=== PATIENT | male | born 1955 | race African-American/Black ===

== ENCOUNTER 2016-07-15 05:55 | Emergency (ER) | payer OTHER ==
[~2016-07-15] VITALS: Ht 170.2 cm; Wt 68.2 kg
[~2016-07-15 05:55] MED LIST: ADVAIR 250/501 DISK IH; ALBUTEROL SULF8.5 GM IH; AQUAPHOR W-NAT50 GM TP; ASPIR-LOW81 MG PO; ASPIR-TRIN325 M1 PO; ATARAX,VISTARIL25 MG PO; AZITHROMYCIN500 M1 PO; LORTAB 5-325 M1 EACH PO; MEDROL DOSEPAK4 MG PO; MOBIC7.5 MG PO; Medrol Dosepak PO; OMEGA 3 1,0001 EAC1 PO; OMEGA-31000 M1 PO; PRAMOSONE 2.528.4 G1 PR; PREDNISONE10 M1 PO; PREDNISONE20 MG PO; PRILOSEC20 MG PO; PROVENTIL HFA6.7 GM IH; Proventil,Ventolin H IH; RISPERDAL1 MG PO; SYMBICORT60 INHALAT IH; ULTRAM50 MG PO; VENTOLIN HFA18 GM IH; ZITHROMAX Z-PA250 MG PO; ZITHROMAX250 MG PO; [UNRECOGNIZED DRUG - OTHER]
[2016-07-15 06:46] LABS: HEMATOCRIT 39.7 % (38.0-50.0); MCH 26.3 PG (29.0-34.0); MCV 79.6 FL (86-99); MEAN PLAT.VOLUME 9.6 uM^3 (9.0-12.4); PLATELET COUNT 207 K/uL (156-360); RBC DIS.WIDTH-CV 15.3 % (11.8-14.6); RED BLOOD COUNT 4.99 M/uL (4.00-5.50); WHITE BLOOD COUNT 4.4 K/uL (4.1-10.2)
[2016-07-15 06:55] LABS: CHLORIDE 110 mEq/L (99-109); POTASSIUM 3.9 mEq/L (3.7-5.4); SODIUM 143 mEq/L (136-147)
[2016-07-15 06:57] LABS: GLUCOSE 95 mg/dL (70-99)
[2016-07-15 06:58] LABS: ANION GAP 10 MEQ/L (2-14)
[2016-07-15 07:00] LABS: GFR ESTIMATE (CALCULATED) > 59 mL/min/
[2016-07-15 07:01] LABS: UREA NITROGEN (BUN) 21 mg/dL (9-23)
[2016-07-15] MEDS ORDERED: ZITHROMAX Z-PA250 MG PO (08:05)
[2016-07-15] MEDS ORDERED: PREDNISONE50 MG PO (08:05)
[2016-07-15 08:31] VITALS: BP 102/69
== END 2016-07-15 08:32 | disposition home or self-care (01) ==
LOC: EME 05:55
DX: J45.901 Unspecified asthma with (acute) exacerbation (principal); Z91.040 Latex allergy status; Z88.0 Allergy status to penicillin; Z87.891 Personal history of nicotine dependence
CPT/HCPCS: 71020; 80048; 85027; 94640; 99281; 99284; J1100; J7644

== ENCOUNTER 2016-08-03 03:26 | Emergency (ER) | payer OTHER ==
[~2016-08-03] VITALS: Ht 170.2 cm; Wt 61.7 kg
[~2016-08-03 03:26] MED LIST changes: +ADVAIR 250/501 DISK AEROSOL; +DOXYCYCLINE HY100 M3 PO; +HYDROXYZINE HCL25 MG PO; +PREDNISONE10 MG PO; +PREDNISONE50 MG PO
[2016-08-03 03:33] VITALS: BP 118/72
[2016-08-03 03:59] LABS: MCH 26.2 PG (29.0-34.0); MCHC 33.3 G/DL (30.0-36.0); MCV 78.6 FL (86-99); MEAN PLAT.VOLUME 9.2 uM^3 (9.0-12.4); PLATELET COUNT 185 K/uL (156-360); RBC DIS.WIDTH-CV 15.6 % (11.8-14.6); RBC DIS.WIDTH-SD 43.6 % (39-53); RED BLOOD COUNT 4.96 M/uL (4.00-5.50); WHITE BLOOD COUNT 4.4 K/uL (4.1-10.2)
[2016-08-03 04:11] LABS: CHLORIDE 109 mEq/L (99-109); POTASSIUM 4.1 mEq/L (3.7-5.4); SODIUM 140 mEq/L (136-147)
[2016-08-03 04:13] LABS: GLUCOSE 94 mg/dL (70-99)
[2016-08-03 04:14] LABS: ANION GAP 7 MEQ/L (2-14)
[2016-08-03 04:17] LABS: GFR ESTIMATE (CALCULATED) > 59 mL/min/
[2016-08-03 04:18] LABS: UREA NITROGEN (BUN) 29 mg/dL (9-23)
[2016-08-03 04:20] LABS: TROP-I INTERPRETATION NEGATIVE; TROPONIN-I < 0.01 ng/mL (0.0-0.30)
[2016-08-03] MEDS ORDERED: ZITHROMAX Z-PA250 MG PO (04:45)
[2016-08-03] MEDS ORDERED: PREDNISONE20 MG PO (04:45)
[2016-08-03] MEDS ORDERED: PROAIR HFA8.5 GM IH (04:45)
== END 2016-08-03 05:19 | disposition home or self-care (01) ==
LOC: EME 03:26
PROVIDERS: Emergency Medicine
DX: J44.1 Chronic obstructive pulmonary disease with (acute) exacerbation (principal); F32.9 Major depressive disorder, single episode, unspecified; I10 Essential (primary) hypertension; E78.5 Hyperlipidemia, unspecified; I25.10 Atherosclerotic heart disease of native coronary artery without angina pectoris; Z98.61 Coronary angioplasty status; Z87.891 Personal history of nicotine dependence
CPT/HCPCS: 71010; 80048; 84484; 85027; 93005; 94640; J7512

== ENCOUNTER 2016-08-22 23:18 | Emergency (ER) | payer OTHER ==
[~2016-08-22] VITALS: Ht 170.2 cm; Wt 64.3 kg
[~2016-08-22 23:18] MED LIST changes: +PROAIR HFA8.5 GM IH
[2016-08-23 00:20] LABS: EOSINOPHIL (%) 5.1 % (0-5); EOSINOPHIL COUNT 0.2 K/uL (0-0.3); HEMATOCRIT 37.5 % (38.0-50.0); IMMATURE GRANULOCYTE (%) 0.2 % (0.0-0.7); IMMATURE GRANULOCYTE COUNT 0.1 K/uL; LYMPHOCYTE COUNT 1.7 K/uL (1.0-2.8); MCH 26.2 PG (29.0-34.0); MCHC 33.3 G/DL (30.0-36.0); MCV 78.6 FL (86-99); MEAN PLAT.VOLUME 9.4 uM^3 (9.0-12.4); MONOCYTE (%) 10.7 % (3-12); MONOCYTE COUNT 0.5 K/uL (0-0.8); NEUTROPHIL (%) 45.4 % (45-76); PLATELET COUNT 201 K/uL (156-360); RBC DIS.WIDTH-CV 15.9 % (11.8-14.6); RBC DIS.WIDTH-SD 44.7 % (39-53); RED BLOOD COUNT 4.77 M/uL (4.00-5.50); WHITE BLOOD COUNT 4.3 K/uL (4.1-10.2)
[2016-08-23 00:35] LABS: CHLORIDE 110 mEq/L (99-109); POTASSIUM 3.7 mEq/L (3.7-5.4); SODIUM 144 mEq/L (136-147)
[2016-08-23 00:38] LABS: GLUCOSE 89 mg/dL (70-99)
[2016-08-23 00:39] LABS: ANION GAP 9 MEQ/L (2-14)
[2016-08-23 00:40] LABS: TOTAL BILIRUBIN 1.1 mg/dL (0.0-1.0)
[2016-08-23 00:41] LABS: ALKALINE PHOSPHATASE 44 IU/L (3-129); GFR ESTIMATE (CALCULATED) > 59 mL/min/; TROP-I INTERPRETATION NEGATIVE; TROPONIN-I < 0.01 ng/mL (0.0-0.30)
[2016-08-23 00:42] LABS: UREA NITROGEN (BUN) 21 mg/dL (9-23)
[2016-08-23] MEDS ORDERED: ZITHROMAX Z-PA250 MG PO (01:37)
[2016-08-23] MEDS ORDERED: PROAIR HFA8.5 GM IH (01:37)
[2016-08-23] MEDS ORDERED: PREDNISONE20 MG PO (01:37)
[2016-08-23 02:03] VITALS: BP 107/68
== END 2016-08-23 02:37 | disposition home or self-care (01) ==
LOC: EME 23:18
PROVIDERS: Emergency Medicine
DX: J44.1 Chronic obstructive pulmonary disease with (acute) exacerbation (principal); Z87.891 Personal history of nicotine dependence
CPT/HCPCS: 71020; 80053; 83880; 84484; 85025; 93005; 94640; 94640 76; 99281; 99284; J7512

== ENCOUNTER 2016-10-23 18:06 | Emergency (ER) | payer OTHER ==
[~2016-10-23] VITALS: Ht 170.2 cm; Wt 63.0 kg
[2016-10-23 20:51] VITALS: BP 126/85
== END 2016-10-23 20:51 | disposition home or self-care (01) ==
LOC: EME → EDBD 18:06 → EME 18:06
DX: S09.90XA Unspecified injury of head, initial encounter (principal); M25.551 Pain in right hip; W19.XXXA Unspecified fall, initial encounter; F17.200 Nicotine dependence, unspecified, uncomplicated; Z91.040 Latex allergy status; Z88.0 Allergy status to penicillin; Z91.048 Other nonmedicinal substance allergy status
CPT/HCPCS: 70450; 72125; 73502; 99281; 99284

== ENCOUNTER 2016-11-10 09:41 | Observation (INO) | payer OTHER ==
[~2016-11-10] VITALS: Ht 170.2 cm; Wt 65.8 kg
[2016-11-10 11:46] LABS: HEMATOCRIT 40.8 % (38.0-50.0); MCHC 31.6 G/DL (30.0-36.0); MCV 82.3 FL (86-99); MEAN PLAT.VOLUME 9.1 uM^3 (9.0-12.4); PLATELET COUNT 192 K/uL (156-360); RBC DIS.WIDTH-CV 15.8 % (11.8-14.6); RBC DIS.WIDTH-SD 47.6 % (39-53); RED BLOOD COUNT 4.96 M/uL (4.00-5.50); WHITE BLOOD COUNT 3.4 K/uL (4.1-10.2)
[2016-11-10 11:57] LABS: CHLORIDE 108 mEq/L (99-109); POTASSIUM 3.9 mEq/L (3.7-5.4); SODIUM 142 mEq/L (136-147)
[2016-11-10 11:59] LABS: GLUCOSE 68 mg/dL (70-99)
[2016-11-10 12:00] LABS: ANION GAP 10 MEQ/L (2-14)
[2016-11-10 12:02] LABS: SERUM ETHYL ALCOHOL < 10 mg/dL
[2016-11-10 12:03] LABS: GFR ESTIMATE (CALCULATED) > 59 mL/min/
[2016-11-10 12:04] LABS: UREA NITROGEN (BUN) 14 mg/dL (9-23)
[2016-11-10 12:30] LABS: HIV INDEX 0.15; HIV-1/2 AB/AG COMBO Nonreactive
[2016-11-10 14:39] LABS: ADD MIUA? NO; BILIRUBIN NEGATIVE; BLOOD NEGATIVE; COLOR YELLOW ((YELLOW)); GLUCOSE (STRIP) NEGATIVE; KETONES NEGATIVE; LEUKOCYTES NEGATIVE; NITRITE NEGATIVE; PROTEIN (STRIP) NEGATIVE; SPECIFIC GRAVITY 1.015 (1.000-1.030); UCUL ADDED? NO; UROBILINOGEN 0.2 MG/DL (0.2-1.0)
[2016-11-10 14:49] LABS: AMPHETAMINE NEGATIVE (500 ng/mL); BARBITURATES NEGATIVE (200 ng/mL); BENZODIAZEPINES NEGATIVE (150 ng/mL); COCAINE NEGATIVE (150 ng/mL); INTERNAL CONTROLS VALID? YES; METHADONE NEGATIVE (200 ng/mL); METHAMPHETAMINE NEGATIVE (500 ng/mL); OPIATES (MORPHINE) NEGATIVE (100 ng/mL); OXYCODONE NEGATIVE (100 ng/mL); PHENCYCLIDINE NEGATIVE (25 ng/mL); PROPOXYPHENE NEGATIVE (300 ng/mL); THC CANNABINOIDS NEGATIVE (50 ng/mL); TRICYCLIC ANTIDEPRESSANTS NEGATIVE (300 ng/mL)
[2016-11-10] MEDS ORDERED: ZANTAC150 MG PO (15:21)
[2016-11-10] MEDS ORDERED: VENTOLIN HFA18 GM IH (15:21)
[2016-11-10] MEDS ORDERED: RISPERIDONE3 MG PO (15:21)
[2016-11-10] MEDS ORDERED: SERTRALINE HCL100 MG PO (15:21)
[2016-11-10 16:06] LABS: INFLUENZA A VIRAL ANTIGEN NEGATIVE; INFLUENZA B VIRAL ANTIGEN NEGATIVE
[2016-11-10 18:11] VITALS: BP 128/81
[2016-11-10 20:35] VITALS: BP 129/80
[2016-11-10 23:37] VITALS: BP 110/78
[2016-11-11 04:51] VITALS: BP 124/73
[2016-11-11 07:47] VITALS: BP 121/71
[2016-11-11 10:22] LABS: HEMATOCRIT 35.1 % (38.0-50.0); MCH 26.3 PG (29.0-34.0); MCHC 32.5 G/DL (30.0-36.0); MCV 81.1 FL (86-99); MEAN PLAT.VOLUME 8.9 uM^3 (9.0-12.4); PLATELET COUNT 160 K/uL (156-360); RBC DIS.WIDTH-CV 15.5 % (11.8-14.6); RBC DIS.WIDTH-SD 46.3 % (39-53); RED BLOOD COUNT 4.33 M/uL (4.00-5.50); WHITE BLOOD COUNT 3.7 K/uL (4.1-10.2)
[2016-11-11 10:31] LABS: CHLORIDE 114 mEq/L (99-109); POTASSIUM 4.2 mEq/L (3.7-5.4); SODIUM 141 mEq/L (136-147)
[2016-11-11 10:34] LABS: ANION GAP 7 MEQ/L (2-14)
[2016-11-11 10:36] LABS: GFR ESTIMATE (CALCULATED) > 59 mL/min/
[2016-11-11 10:37] LABS: UREA NITROGEN (BUN) 10 mg/dL (9-23)
[2016-11-11 10:42] LABS: GLUCOSE 88 mg/dL (70-99)
[2016-11-11 12:17] VITALS: BP 129/79
== END 2016-11-11 12:33 | disposition home or self-care (01) ==
LOC: EME → EDBD 09:41 → EME 09:41 → EDOF 14:22 → 3EAST 14:22 → EDOF 14:22 → 3EAST 17:39
PROVIDERS: Emergency Medicine; Physician Assistant
DX: E87.2 Acidosis (principal); E86.0 Dehydration; R53.1 Weakness; G89.21 Chronic pain due to trauma; M25.551 Pain in right hip; M25.511 Pain in right shoulder; M25.512 Pain in left shoulder; R05 Cough; J45.909 Unspecified asthma, uncomplicated; E11.9 Type 2 diabetes mellitus without complications; I10 Essential (primary) hypertension; E78.5 Hyperlipidemia, unspecified; F41.9 Anxiety disorder, unspecified; G62.9 Polyneuropathy, unspecified
CPT/HCPCS: 71020; 80048; 81003; 83605; 85027; 86703; 87040; 87502; 99281; 99285; G0378; G0480; J0692; J1650; J3370; J7030; J7050

== ENCOUNTER 2016-12-23 21:43 | Emergency (ER) | payer OTHER ==
[~2016-12-23] VITALS: Ht 170.2 cm; Wt 67.3 kg
[~2016-12-23 21:43] MED LIST changes: +RISPERIDONE3 MG PO; +SERTRALINE HCL100 MG PO; +ZANTAC150 MG PO
[2016-12-24] MEDS ORDERED: MOTRIN800 MG PO (02:19)
[2016-12-24 02:46] VITALS: BP 118/72
== END 2016-12-24 02:47 | disposition home or self-care (01) ==
LOC: EME 21:43
DX: R51 Headache (principal); G89.29 Other chronic pain; M25.511 Pain in right shoulder; M25.551 Pain in right hip; M79.604 Pain in right leg; F17.200 Nicotine dependence, unspecified, uncomplicated
CPT/HCPCS: 99281; 99284; J1885

== ENCOUNTER 2017-01-17 09:40 | Emergency (ER) | payer OTHER ==
[~2017-01-17] VITALS: Ht 170.2 cm; Wt 62.2 kg
[~2017-01-17 09:40] MED LIST changes: +MOTRIN800 MG PO
[2017-01-17 11:23] LABS: HEMATOCRIT 37.8 % (38.0-50.0); MCH 26.7 PG (29.0-34.0); MCHC 32.8 G/DL (30.0-36.0); MCV 81.3 FL (86-99); MEAN PLAT.VOLUME 9.6 uM^3 (9.0-12.4); PLATELET COUNT 200 K/uL (156-360); RBC DIS.WIDTH-SD 47.8 % (39-53); RED BLOOD COUNT 4.65 M/uL (4.00-5.50)
[2017-01-17 11:35] LABS: CHLORIDE 111 mEq/L (99-109); POTASSIUM 4.2 mEq/L (3.7-5.4); SODIUM 144 mEq/L (136-147)
[2017-01-17 11:37] LABS: GLUCOSE 82 mg/dL (70-99)
[2017-01-17 11:38] LABS: ANION GAP 7 MEQ/L (2-14)
[2017-01-17 11:39] LABS: TOTAL BILIRUBIN 0.9 mg/dL (0.0-1.0)
[2017-01-17 11:41] LABS: ALKALINE PHOSPHATASE 65 IU/L (3-129); GFR ESTIMATE (CALCULATED) > 59 mL/min/
[2017-01-17 11:42] LABS: UREA NITROGEN (BUN) 13 mg/dL (9-23)
[2017-01-17 11:56] LABS: ADD MIUA? NO; BILIRUBIN NEGATIVE; BLOOD NEGATIVE; COLOR YELLOW ((YELLOW)); GLUCOSE (STRIP) NEGATIVE; KETONES NEGATIVE; LEUKOCYTES NEGATIVE; NITRITE NEGATIVE; PROTEIN (STRIP) NEGATIVE; SPECIFIC GRAVITY 1.015 (1.000-1.030); UCUL ADDED? NO
[2017-01-17 13:07] LABS: AMPHETAMINE NEGATIVE (500 ng/mL); BARBITURATES NEGATIVE (200 ng/mL); BENZODIAZEPINES NEGATIVE (150 ng/mL); COCAINE NEGATIVE (150 ng/mL); INTERNAL CONTROLS VALID? YES; METHADONE NEGATIVE (200 ng/mL); METHAMPHETAMINE NEGATIVE (500 ng/mL); OPIATES (MORPHINE) NEGATIVE (100 ng/mL); OXYCODONE NEGATIVE (100 ng/mL); PHENCYCLIDINE NEGATIVE (25 ng/mL); PROPOXYPHENE NEGATIVE (300 ng/mL); THC CANNABINOIDS PRESUMPTIVE POSITIVE (50 ng/mL); TRICYCLIC ANTIDEPRESSANTS NEGATIVE (300 ng/mL)
[2017-01-17 13:08] LABS: ADD MEDTOX COMMENT Y
[2017-01-17] MEDS ORDERED: MOTRIN800 MG PO (13:16)
[2017-01-17 13:44] VITALS: BP 102/68
== END 2017-01-17 13:45 | disposition home or self-care (01) ==
LOC: EME 09:40
DX: R42 Dizziness and giddiness (principal); G89.29 Other chronic pain; M25.511 Pain in right shoulder; F12.10 Cannabis abuse, uncomplicated; F32.9 Major depressive disorder, single episode, unspecified; F17.200 Nicotine dependence, unspecified, uncomplicated; Z87.19 Personal history of other diseases of the digestive system; Z88.0 Allergy status to penicillin; Z91.040 Latex allergy status
CPT/HCPCS: 71020; 80053; 81003; 84999; 85027; 99281; 99283

== ENCOUNTER 2017-02-09 06:51 | Emergency (ER) | payer OTHER ==
[~2017-02-09] VITALS: Ht 170.2 cm; Wt 63.6 kg
[2017-02-09] MEDS ORDERED: KENALOG,ARISTOC60 ML TP (07:29)
[2017-02-09] MEDS ORDERED: ATARAX,VISTARIL50 MG PO (07:29)
[2017-02-09] MEDS ORDERED: MEDROL DOSEPAK4 MG PO (07:30)
[2017-02-09 08:12] VITALS: BP 140/80
== END 2017-02-09 08:12 | disposition home or self-care (01) ==
LOC: EME 06:51
DX: L25.9 Unspecified contact dermatitis, unspecified cause (principal); Z20.7 Contact with and (suspected) exposure to pediculosis, acariasis and other infestations
CPT/HCPCS: 99281; 99283; Q0177

== ENCOUNTER 2017-03-09 23:40 | Emergency (ER) | payer OTHER ==
[~2017-03-09] VITALS: Ht 170.2 cm; Wt 60.2 kg
[~2017-03-09 23:40] MED LIST changes: +ATARAX,VISTARIL50 MG PO; +KENALOG,ARISTOC60 ML TP
[2017-03-10 05:27] LABS: CHLORIDE 105 mEq/L (99-109); POTASSIUM 3.6 mEq/L (3.7-5.4); SODIUM 139 mEq/L (136-147)
[2017-03-10 05:29] LABS: GLUCOSE 86 mg/dL (70-99)
[2017-03-10 05:30] LABS: ANION GAP 11 MEQ/L (2-14)
[2017-03-10 05:33] LABS: GFR ESTIMATE (CALCULATED) > 59 mL/min/; UREA NITROGEN (BUN) 9 mg/dL (9-23)
[2017-03-10 05:38] LABS: HEMATOCRIT 38.9 % (38.0-50.0); MCH 26.6 PG (29.0-34.0); MCHC 32.6 G/DL (30.0-36.0); MCV 81.4 FL (86-99); MEAN PLAT.VOLUME 9.5 uM^3 (9.0-12.4); PLATELET COUNT 219 K/uL (156-360); RBC DIS.WIDTH-CV 16.8 % (11.8-14.6); RBC DIS.WIDTH-SD 49.5 % (39-53); RED BLOOD COUNT 4.78 M/uL (4.00-5.50)
[2017-03-10] MEDS ORDERED: ATARAX,VISTARIL25 MG PO (05:46)
[2017-03-10] MEDS ORDERED: [UNRECOGNIZED DRUG - OTHER] TP (05:46)
[2017-03-10 06:25] VITALS: BP 128/77
== END 2017-03-10 06:29 | disposition home or self-care (01) ==
LOC: EME 23:40
PROVIDERS: Emergency Medicine
DX: S80.861A Insect bite (nonvenomous), right lower leg, initial encounter (principal); S80.862A Insect bite (nonvenomous), left lower leg, initial encounter; W57.XXXA Bitten or stung by nonvenomous insect and other nonvenomous arthropods, initial encounter; G47.00 Insomnia, unspecified; R05 Cough; F17.200 Nicotine dependence, unspecified, uncomplicated
CPT/HCPCS: 71020; 80048; 85027; 99281; 99283; Q0177

== ENCOUNTER 2017-04-19 00:02 | Emergency (ER) | payer OTHER ==
[~2017-04-19] VITALS: Ht 170.2 cm; Wt 56.0 kg
[~2017-04-19 00:02] MED LIST changes: +[UNRECOGNIZED DRUG - OTHER] TP
[2017-04-19 00:56] LABS: HEMATOCRIT 39.3 % (38.0-50.0); MCH 26.9 PG (29.0-34.0); MCHC 33.1 G/DL (30.0-36.0); MCV 81.4 FL (86-99); PLATELET COUNT 237 K/uL (156-360); RBC DIS.WIDTH-SD 47.8 % (39-53); RED BLOOD COUNT 4.83 M/uL (4.00-5.50); WHITE BLOOD COUNT 12.7 K/uL (4.1-10.2)
[2017-04-19 01:05] LABS: CHLORIDE 101 mEq/L (99-109); POTASSIUM 3.3 mEq/L (3.7-5.4); SODIUM 139 mEq/L (136-147)
[2017-04-19 01:06] LABS: GLUCOSE 83 mg/dL (70-99)
[2017-04-19 01:08] LABS: ANION GAP 13 MEQ/L (2-14)
[2017-04-19 01:10] LABS: GFR ESTIMATE (CALCULATED) > 59 mL/min/
[2017-04-19 01:11] LABS: UREA NITROGEN (BUN) 16 mg/dL (9-23)
[2017-04-19] MEDS ORDERED: VENTOLIN HFA18 GM IH (02:22)
[2017-04-19] MEDS ORDERED: ZITHROMAX Z-PA250 MG PO (02:22)
[2017-04-19] MEDS ORDERED: PREDNISONE20 MG PO (02:22)
[2017-04-19 03:40] VITALS: BP 108/68
== END 2017-04-19 03:48 | disposition home or self-care (01) ==
LOC: EME 00:02
DX: J44.1 Chronic obstructive pulmonary disease with (acute) exacerbation (principal); R11.0 Nausea; R09.3 Abnormal sputum; F17.200 Nicotine dependence, unspecified, uncomplicated
CPT/HCPCS: 71020; 80048; 85027; 94640; 99281; 99283; J7512

== ENCOUNTER 2017-05-02 11:49 | Emergency (ER) | payer OTHER ==
[~2017-05-02] VITALS: Ht 170.2 cm; Wt 56.2 kg
[2017-05-02 13:29] LABS: EOSINOPHIL (%) 1.8 % (0-5); EOSINOPHIL COUNT 0.1 K/uL (0-0.3); HEMATOCRIT 44.9 % (38.0-50.0); IMMATURE GRANULOCYTE (%) 1.5 % (0.0-0.7); IMMATURE GRANULOCYTE COUNT 0.1 K/uL; INSTRUMENT ABS NEUTROPHIL CT 3.9 K/uL; LYMPHOCYTE COUNT 2.1 K/uL (1.0-2.8); MCH 29.7 PG (29.0-34.0); MCHC 33.9 G/DL (30.0-36.0); MEAN PLAT.VOLUME 9.3 uM^3 (9.0-12.4); MONOCYTE (%) 6.7 % (3-12); MONOCYTE COUNT 0.5 K/uL (0-0.8); NEUTROPHIL (%) 58.2 % (45-76); NEUTROPHIL COUNT 3.9 K/uL (1.8-6.4); PLATELET COUNT 286 K/uL (156-360); RBC DIS.WIDTH-CV 13.3 % (11.8-14.6); RBC DIS.WIDTH-SD 42.6 % (39-53); RED BLOOD COUNT 5.11 M/uL (4.00-5.50); WHITE BLOOD COUNT 6.7 K/uL (4.1-10.2)
[2017-05-02 13:30] LABS: MCV 87.9 FL (86-99)
[2017-05-02 13:35] LABS: CHLORIDE 106 mEq/L (99-109); SODIUM 141 mEq/L (136-147)
[2017-05-02 13:37] LABS: GLUCOSE 94 mg/dL (70-99)
[2017-05-02 13:38] LABS: ANION GAP 9 MEQ/L (2-14)
[2017-05-02 13:40] LABS: SERUM ETHYL ALCOHOL < 10 mg/dL
[2017-05-02 13:41] LABS: GFR ESTIMATE (CALCULATED) > 59 mL/min/
[2017-05-02 13:42] LABS: UREA NITROGEN (BUN) 14 mg/dL (9-23)
[2017-05-02 13:53] LABS: ADD MEDTOX COMMENT Y; AMPHETAMINE NEGATIVE (500 ng/mL); BARBITURATES NEGATIVE (200 ng/mL); BENZODIAZEPINES NEGATIVE (150 ng/mL); COCAINE PRESUMPTIVE POSITIVE (150 ng/mL); INTERNAL CONTROLS VALID? YES; METHADONE NEGATIVE (200 ng/mL); METHAMPHETAMINE NEGATIVE (500 ng/mL); OPIATES (MORPHINE) NEGATIVE (100 ng/mL); OXYCODONE NEGATIVE (100 ng/mL); PHENCYCLIDINE NEGATIVE (25 ng/mL); PROPOXYPHENE NEGATIVE (300 ng/mL); THC CANNABINOIDS PRESUMPTIVE POSITIVE (50 ng/mL); TRICYCLIC ANTIDEPRESSANTS NEGATIVE (300 ng/mL)
[2017-05-02 15:32] VITALS: BP 93/60
== END 2017-05-02 16:11 | disposition home or self-care (01) ==
LOC: EME 11:49
PROVIDERS: Emergency Medicine
DX: F32.9 Major depressive disorder, single episode, unspecified (principal); R45.851 Suicidal ideations; R44.0 Auditory hallucinations; F41.9 Anxiety disorder, unspecified; R05 Cough; R06.2 Wheezing; F14.90 Cocaine use, unspecified, uncomplicated; F10.99 Alcohol use, unspecified with unspecified alcohol-induced disorder; F12.90 Cannabis use, unspecified, uncomplicated; F17.200 Nicotine dependence, unspecified, uncomplicated
CPT/HCPCS: 71010; 80048; 84999; 85025; 90839; 94640; 99281; 99285; G0480

== ENCOUNTER 2017-05-04 04:25 | Emergency (ER) | payer OTHER ==
[~2017-05-04] VITALS: Ht 170.2 cm; Wt 56.6 kg
[2017-05-04 05:53] VITALS: BP 120/68
== END 2017-05-04 05:54 | disposition home or self-care (01) ==
LOC: EME 04:25
DX: S20.212A Contusion of left front wall of thorax, initial encounter (principal); Y04.8XXA Assault by other bodily force, initial encounter; Y93.01 Activity, walking, marching and hiking; Y07.9 Unspecified perpetrator of maltreatment and neglect; F32.9 Major depressive disorder, single episode, unspecified; F31.9 Bipolar disorder, unspecified; F41.9 Anxiety disorder, unspecified; F17.200 Nicotine dependence, unspecified, uncomplicated; Z87.19 Personal history of other diseases of the digestive system; Z88.0 Allergy status to penicillin; Z91.040 Latex allergy status
CPT/HCPCS: 71100; 99281; 99283

== ENCOUNTER 2017-05-12 05:18 | Emergency (ER) | payer OTHER ==
[~2017-05-12] VITALS: Ht 170.2 cm; Wt 54.7 kg
[2017-05-12 06:05] LABS: CHLORIDE 108 mEq/L (99-109); POTASSIUM 3.8 mEq/L (3.7-5.4); SODIUM 140 mEq/L (136-147)
[2017-05-12 06:07] LABS: GLUCOSE 113 mg/dL (70-99)
[2017-05-12 06:08] LABS: ANION GAP 10 MEQ/L (2-14)
[2017-05-12 06:09] LABS: EOSINOPHIL (%) 21.2 % (0-5); HEMATOCRIT 37.9 % (38.0-50.0); IMMATURE GRANULOCYTE (%) 0.2 % (0.0-0.7); INSTRUMENT ABS NEUTROPHIL CT 1.2 K/uL; MCH 26.9 PG (29.0-34.0); MCHC 33.2 G/DL (30.0-36.0); MEAN PLAT.VOLUME 9.5 uM^3 (9.0-12.4); MONOCYTE (%) 8.6 % (3-12); MONOCYTE COUNT 0.4 K/uL (0-0.8); NEUTROPHIL (%) 26.6 % (45-76); NEUTROPHIL COUNT 1.2 K/uL (1.8-6.4); PLATELET COUNT 201 K/uL (156-360); RBC DIS.WIDTH-CV 16.2 % (11.8-14.6); RBC DIS.WIDTH-SD 47.6 % (39-53); RED BLOOD COUNT 4.68 M/uL (4.00-5.50); WHITE BLOOD COUNT 4.7 K/uL (4.1-10.2)
[2017-05-12 06:11] LABS: GFR ESTIMATE (CALCULATED) > 59 mL/min/; UREA NITROGEN (BUN) 15 mg/dL (9-23)
[2017-05-12 06:25] LABS: ADD MIUA? YES; BILIRUBIN NEGATIVE; BLOOD NEGATIVE; COLOR YELLOW ((YELLOW)); GLUCOSE (STRIP) NEGATIVE; KETONES NEGATIVE; LEUKOCYTES NEGATIVE; NITRITE NEGATIVE; PROTEIN (STRIP) NEGATIVE
[2017-05-12 06:30] VITALS: BP 103/66
[2017-05-12 06:30] LABS: BACTERIA NONE SEEN /HPF; EPITHELIAL CELLS RARE /HPF; MUCUS TRACE /LPF; UCUL ADDED? NO; WHITE BLOOD CELLS 0-5 /HPF (0-5)
[2017-05-12] MEDS ORDERED: LIDOCAINE700 MG TP (06:33)
[2017-05-12] MEDS ORDERED: ULTRAM50 MG PO (06:33)
== END 2017-05-12 06:32 | disposition home or self-care (01) ==
LOC: EME → EDBD 05:18 → EME 05:18
PROVIDERS: Emergency Medicine
DX: S20.212A Contusion of left front wall of thorax, initial encounter (principal); X58.XXXA Exposure to other specified factors, initial encounter; J44.9 Chronic obstructive pulmonary disease, unspecified; F32.9 Major depressive disorder, single episode, unspecified; F41.9 Anxiety disorder, unspecified; Z87.19 Personal history of other diseases of the digestive system; Z88.0 Allergy status to penicillin; Z91.040 Latex allergy status; Z87.891 Personal history of nicotine dependence
CPT/HCPCS: 71020; 80048; 81003; 85025; 99281; 99283

== ENCOUNTER 2017-06-02 08:26 | Emergency (ER) | payer OTHER ==
[~2017-06-02] VITALS: Ht 170.2 cm; Wt 55.6 kg
[~2017-06-02 08:26] MED LIST changes: +LIDOCAINE700 MG TP
[2017-06-02] MEDS ORDERED: ATARAX,VISTARIL25 MG PO (11:08)
[2017-06-02] MEDS ORDERED: KENALOG,ARISTOC80 GM TP (11:08)
[2017-06-02] MEDS ORDERED: CETAPHIL226 GM TP (11:08)
[2017-06-02 11:17] VITALS: BP 119/80
== END 2017-06-02 11:21 | disposition home or self-care (01) ==
LOC: EME 08:26
DX: L30.9 Dermatitis, unspecified (principal); F17.200 Nicotine dependence, unspecified, uncomplicated; Z88.0 Allergy status to penicillin; Z91.040 Latex allergy status
CPT/HCPCS: 99281; 99284

== ENCOUNTER 2017-10-03 04:39 | Emergency (ER) | payer OTHER ==
[~2017-10-03] VITALS: Ht 170.2 cm; Wt 56.6 kg
[~2017-10-03 04:39] MED LIST changes: +CETAPHIL226 GM TP; +KENALOG,ARISTOC80 GM TP
[2017-10-03] MEDS ORDERED: ZITHROMAX Z-PA250 MG PO (05:14)
[2017-10-03] MEDS ORDERED: PROVENTIL HFA6.7 GM IH (05:14)
[2017-10-03] MEDS ORDERED: PREDNISONE20 MG PO (05:14)
[2017-10-03 06:10] VITALS: BP 116/66
== END 2017-10-03 06:19 | disposition home or self-care (01) ==
LOC: EME → EDBD 04:39 → EME 04:39
DX: J44.1 Chronic obstructive pulmonary disease with (acute) exacerbation (principal); F17.200 Nicotine dependence, unspecified, uncomplicated; F41.9 Anxiety disorder, unspecified; F32.9 Major depressive disorder, single episode, unspecified; F31.9 Bipolar disorder, unspecified; Z87.19 Personal history of other diseases of the digestive system; Z91.040 Latex allergy status; Z88.0 Allergy status to penicillin
CPT/HCPCS: 94640; 99281; 99285; J7512; J7644

== ENCOUNTER 2017-12-21 15:05 | Emergency (ER) | payer OTHER ==
[~2017-12-21] VITALS: Ht 170.2 cm; Wt 68.2 kg
[2017-12-21 16:05] LABS: HEMOGLOBIN 12.5 G/DL (12.5-16.6); MCH 27.6 PG (29.0-34.0); MCHC 32.9 G/DL (30.0-36.0); MCV 83.9 FL (86-99); PLATELET COUNT 197 K/uL (156-360); RBC DIS.WIDTH-SD 49.2 % (39-53); RED BLOOD COUNT 4.53 M/uL (4.00-5.50); WHITE BLOOD COUNT 3.8 K/uL (4.1-10.2)
[2017-12-21 16:13] LABS: CHLORIDE 111 mEq/L (99-109); POTASSIUM 4.9 mEq/L (3.7-5.4); SODIUM 139 mEq/L (136-147)
[2017-12-21 16:15] LABS: GLUCOSE 87 mg/dL (70-99)
[2017-12-21 16:19] LABS: GFR ESTIMATE (CALCULATED) > 59 mL/min/ (58.99-99999)
[2017-12-21 16:20] LABS: UREA NITROGEN (BUN) 12 mg/dL (9-23)
[2017-12-21 16:27] LABS: TROP-I INTERPRETATION NEGATIVE; TROPONIN-I 0.01 ng/mL (0.0-0.30)
[2017-12-21] MEDS ORDERED: PREDNISONE20 MG PO (16:35)
[2017-12-21 17:28] VITALS: BP 120/76
== END 2017-12-21 17:10 | disposition home or self-care (01) ==
LOC: EME 15:05
PROVIDERS: Emergency Medicine
DX: R20.0 Anesthesia of skin (principal); T78.40XA Allergy, unspecified, initial encounter; J44.9 Chronic obstructive pulmonary disease, unspecified; F31.9 Bipolar disorder, unspecified; F41.9 Anxiety disorder, unspecified; F32.9 Major depressive disorder, single episode, unspecified; F17.200 Nicotine dependence, unspecified, uncomplicated; Z79.51 Long term (current) use of inhaled steroids; Z87.19 Personal history of other diseases of the digestive system; Z87.09 Personal history of other diseases of the respiratory system; Z88.0 Allergy status to penicillin; Z91.040 Latex allergy status
CPT/HCPCS: 80048; 84484; 85027; 99281; 99285

== ENCOUNTER 2018-01-07 16:27 | Emergency (ER) | payer OTHER ==
[~2018-01-07] VITALS: Ht 170.2 cm; Wt 68.0 kg
[2018-01-07 17:12] LABS: BASOPHIL (%) 0.2 % (0-1); EOSINOPHIL (%) 11.1 % (0-5); EOSINOPHIL COUNT 0.5 K/uL (0-0.3); HEMATOCRIT 34.5 % (38.0-50.0); HEMOGLOBIN 11.6 G/DL (12.5-16.6); IMMATURE GRANULOCYTE (%) 0.2 % (0.0-0.7); LYMPHOCYTE (%) 40.5 % (15-42); LYMPHOCYTE COUNT 1.8 K/uL (1.0-2.8); MCH 27.7 PG (29.0-34.0); MCHC 33.6 G/DL (30.0-36.0); MCV 82.3 FL (86-99); MONOCYTE (%) 9.8 % (3-12); MONOCYTE COUNT 0.4 K/uL (0-0.8); NEUTROPHIL (%) 38.2 % (45-76); NEUTROPHIL COUNT 1.7 K/uL (1.8-6.4); PLATELET COUNT 176 K/uL (156-360); RBC DIS.WIDTH-CV 15.8 % (11.8-14.6); RBC DIS.WIDTH-SD 47.3 % (39-53); RED BLOOD COUNT 4.19 M/uL (4.00-5.50); WHITE BLOOD COUNT 4.5 K/uL (4.1-10.2)
[2018-01-07 17:22] LABS: ALBUMIN 3.6 g/dL (3.2-4.8)
[2018-01-07 17:23] LABS: CHLORIDE 105 mEq/L (99-109); POTASSIUM 4.1 mEq/L (3.7-5.4); SODIUM 141 mEq/L (136-147)
[2018-01-07 17:25] LABS: GLUCOSE 99 mg/dL (70-99)
[2018-01-07 17:27] LABS: TOTAL BILIRUBIN 1.3 mg/dL (0.0-1.0)
[2018-01-07 17:28] LABS: ALKALINE PHOSPHATASE 57 IU/L (3-129)
[2018-01-07 17:29] LABS: GFR ESTIMATE (CALCULATED) > 59 mL/min/ (58.99-99999)
[2018-01-07 17:30] LABS: AST (GOT) 17 IU/L (2-34); UREA NITROGEN (BUN) 21 mg/dL (9-23)
[2018-01-07 17:31] LABS: ALT (GPT) 16 IU/L (3-49)
[2018-01-07 17:32] LABS: LIPASE 21 U/L (1.0-51.0)
[2018-01-07 17:38] LABS: TROP-I INTERPRETATION NEGATIVE; TROPONIN-I < 0.01 ng/mL (0.0-0.30)
[2018-01-07 18:24] LABS: APPEARANCE CLEAR ((CLEAR)); BILIRUBIN NEGATIVE; BLOOD NEGATIVE; COLOR YELLOW ((YELLOW)); GLUCOSE (STRIP) NEGATIVE; KETONES NEGATIVE; LEUKOCYTES NEGATIVE; NITRITE NEGATIVE; PROTEIN (STRIP) NEGATIVE; SPECIFIC GRAVITY 1.011 (1.000-1.030); UCUL ADDED? NO
[2018-01-07 20:07] LABS: TROP-I INTERPRETATION NEGATIVE; TROPONIN-I < 0.01 ng/mL (0.0-0.30)
[2018-01-07] MEDS ORDERED: CARAFATE100 MG/ML PO (21:33)
[2018-01-07 22:10] VITALS: BP 106/65
== END 2018-01-07 22:16 | disposition home or self-care (01) ==
LOC: EME 16:27
PROVIDERS: Emergency Medicine
DX: R07.9 Chest pain, unspecified (principal); K21.0 Gastro-esophageal reflux disease with esophagitis; R11.2 Nausea with vomiting, unspecified; I45.10 Unspecified right bundle-branch block; J44.9 Chronic obstructive pulmonary disease, unspecified; Z87.891 Personal history of nicotine dependence
CPT/HCPCS: 71045; 80053; 81003; 83690; 84484; 85025

== ENCOUNTER 2018-01-27 01:36 | Inpatient (IN) | payer OTHER ==
[~2018-01-27] VITALS: Ht 170.2 cm; Wt 55.0 kg
[~2018-01-27 01:36] MED LIST changes: +CARAFATE100 MG/ML PO
[2018-01-27 01:53] LABS: BASOPHIL (%) 0.5 % (0-1); EOSINOPHIL (%) 24.3 % (0-5); HEMATOCRIT 35.2 % (38.0-50.0); HEMOGLOBIN 12.1 G/DL (12.5-16.6); LYMPHOCYTE (%) 47.1 % (15-42); LYMPHOCYTE COUNT 1.9 K/uL (1.0-2.8); MCH 27.9 PG (29.0-34.0); MCHC 34.4 G/DL (30.0-36.0); MCV 81.3 FL (86-99); MONOCYTE COUNT 0.4 K/uL (0-0.8); NEUTROPHIL (%) 19.1 % (45-76); NEUTROPHIL COUNT 0.8 K/uL (1.8-6.4); PLATELET COUNT 184 K/uL (156-360); RBC DIS.WIDTH-CV 14.8 % (11.8-14.6); RBC DIS.WIDTH-SD 44.6 % (39-53); RED BLOOD COUNT 4.33 M/uL (4.00-5.50)
[2018-01-27 02:02] LABS: PTT 24.2 SEC (25-37)
[2018-01-27 02:04] LABS: AMYLASE 141 IU/L (1-118); CHLORIDE 109 mEq/L (99-109); POTASSIUM 3.5 mEq/L (3.7-5.4); SODIUM 143 mEq/L (136-147)
[2018-01-27 02:06] LABS: GLUCOSE 82 mg/dL (70-99)
[2018-01-27 02:09] LABS: SERUM ETHYL ALCOHOL 37 mg/dL
[2018-01-27 02:10] LABS: GFR ESTIMATE (CALCULATED) > 59 mL/min/ (58.99-99999)
[2018-01-27 02:11] LABS: UREA NITROGEN (BUN) 10 mg/dL (9-23)
[2018-01-27 02:13] LABS: LIPASE 26 U/L (1.0-51.0)
[2018-01-27 02:18] LABS: TROP-I INTERPRETATION NEGATIVE; TROPONIN-I < 0.01 ng/mL (0.0-0.30)
[2018-01-27 05:20] VITALS: BP 119/75
[2018-01-27 05:48] LABS: HDL CHOLESTEROL 71 MG/DL (Desirable>=40); LDL CHOLESTEROL 69 mg/dL (Desirable<100); NON-HDL CHOLESTEROL 81 mg/dL (Desirable<160); TOTAL CHOLESTEROL 152 mg/dL (Desirable<200); TRIGLYCERIDES 60 MG/DL (Normal: <150)
[2018-01-27 07:13] VITALS: BP 121/75
[2018-01-27 10:00] LABS: HEMOGLOBIN A1c (GLYCOHEMOGLOB) 5.3 % (Below 5.7)
[2018-01-27 11:31] VITALS: BP 112/60
[2018-01-27] MEDS ORDERED: CLARITIN,ALAVAR10 MG PO (14:48)
[2018-01-27 15:16] VITALS: BP 125/86
[2018-01-27 19:34] VITALS: BP 105/63
[2018-01-27 22:18] LABS: CHLORIDE 108 mEq/L (99-109); SODIUM 137 mEq/L (136-147)
[2018-01-27 22:19] LABS: MAGNESIUM 2.1 mg/dL (1.3-2.7)
[2018-01-27 22:22] LABS: GLUCOSE 148 mg/dL (70-99); POTASSIUM 4.4 mEq/L (3.7-5.4)
[2018-01-27 22:24] LABS: CREATININE 1.1 mg/dL (0.6-1.3); GFR ESTIMATE (CALCULATED) > 59 mL/min/ (58.99-99999)
[2018-01-27 22:25] LABS: UREA NITROGEN (BUN) 14 mg/dL (9-23)
[2018-01-27 23:28] LABS: APPEARANCE CLEAR ((CLEAR)); BILIRUBIN NEGATIVE; BLOOD NEGATIVE; COLOR STRAW ((YELLOW)); GLUCOSE (STRIP) NEGATIVE; KETONES NEGATIVE; LEUKOCYTES NEGATIVE; NITRITE NEGATIVE; PROTEIN (STRIP) NEGATIVE; SPECIFIC GRAVITY 1.006 (1.000-1.030); UCUL ADDED? NO; UROBILINOGEN 0.2 MG/DL (0.2-1.0)
[2018-01-28] VITALS (7 sets, daily range): BP systolic 107–116; BP diastolic 57–68
[2018-01-28 05:28] LABS: BASOPHIL (%) 0 % (0-1); EOSINOPHIL (%) 0 % (0-5); HEMATOCRIT 36.2 % (38.0-50.0); HEMOGLOBIN 11.9 G/DL (12.5-16.6); IMMATURE GRANULOCYTE (%) 0.6 % (0.0-0.7); LYMPHOCYTE (%) 13.3 % (15-42); LYMPHOCYTE COUNT 0.7 K/uL (1.0-2.8); MCH 27.2 PG (29.0-34.0); MCHC 32.9 G/DL (30.0-36.0); MCV 82.8 FL (86-99); MONOCYTE COUNT 0.1 K/uL (0-0.8); NEUTROPHIL (%) 85.1 % (45-76); NEUTROPHIL COUNT 4.5 K/uL (1.8-6.4); PLATELET COUNT 198 K/uL (156-360); RBC DIS.WIDTH-CV 15.2 % (11.8-14.6); RBC DIS.WIDTH-SD 46.2 % (39-53); RED BLOOD COUNT 4.37 M/uL (4.00-5.50); WHITE BLOOD COUNT 5.3 K/uL (4.1-10.2)
[2018-01-28 05:48] LABS: CHLORIDE 107 MEQ/L (99-109); GFR ESTIMATE (CALCULATED) > 59 mL/min/ (58.99-99999); GLUCOSE 161 mg/dL (70-99); POTASSIUM 4.6 MEQ/L (3.7-5.4); SODIUM 138 MEQ/L (136-147); UREA NITROGEN (BUN) 15 mg/dL (9-23)
[2018-01-29 03:16] VITALS: BP 108/61
[2018-01-29 05:53] LABS: BASOPHIL (%) 0.1 % (0-1); EOSINOPHIL (%) 0.1 % (0-5); HEMATOCRIT 34.9 % (38.0-50.0); HEMOGLOBIN 11.6 G/DL (12.5-16.6); IMMATURE GRANULOCYTE (%) 0.2 % (0.0-0.7); LYMPHOCYTE (%) 6.6 % (15-42); LYMPHOCYTE COUNT 0.7 K/uL (1.0-2.8); MCH 27.6 PG (29.0-34.0); MCHC 33.2 G/DL (30.0-36.0); MCV 82.9 FL (86-99); MONOCYTE (%) 2.6 % (3-12); MONOCYTE COUNT 0.3 K/uL (0-0.8); NEUTROPHIL (%) 90.4 % (45-76); NEUTROPHIL COUNT 9.5 K/uL (1.8-6.4); PLATELET COUNT 193 K/uL (156-360); RBC DIS.WIDTH-CV 15.2 % (11.8-14.6); RBC DIS.WIDTH-SD 46.2 % (39-53); RED BLOOD COUNT 4.21 M/uL (4.00-5.50); WHITE BLOOD COUNT 10.5 K/uL (4.1-10.2)
[2018-01-29 06:03] LABS: CHLORIDE 106 MEQ/L (99-109); CREATININE 0.9 MG/DL (0.6-1.3); GFR ESTIMATE (CALCULATED) > 59 mL/min/ (58.99-99999); GLUCOSE 136 mg/dL (70-99); POTASSIUM 4.8 MEQ/L (3.7-5.4); SODIUM 137 MEQ/L (136-147); UREA NITROGEN (BUN) 18 mg/dL (9-23)
[2018-01-29 07:30] VITALS: BP 102/64
[2018-01-29] MEDS ORDERED: ATORVASTATIN CA40 MG PO (11:14)
[2018-01-29] MEDS ORDERED: ASPIRIN81 M2 PO (11:15)
[2018-01-29] MEDS ORDERED: MUCINEX600 MG PO (11:15)
[2018-01-29] MEDS ORDERED: FOLIC ACID1 MG PO (11:15)
[2018-01-29] MEDS ORDERED: Thiamine,Vitamin B1 PO (11:16)
[2018-01-29] MEDS ORDERED: THERAGRAN1 TABLET PO (11:16)
[2018-01-29] MEDS ORDERED: MEDROL DOSEPAK4 MG PO (11:16)
[2018-01-29 12:06] VITALS: BP 124/74
[2018-01-29] MEDS ORDERED: METOPROLOL SUCC25 MG PO (15:57)
[2018-01-29] MEDS ORDERED: CYANOCOBALAM1000 MCG PO (15:59)
[2018-01-29 16:07] VITALS: BP 107/55
[2018-01-29 19:55] VITALS: BP 111/69
[2018-01-29 23:41] VITALS: BP 102/58
[2018-01-30 04:01] VITALS: BP 104/56
[2018-01-30 07:30] VITALS: BP 99/56
[2018-01-30 09:55] LABS: HEMATOCRIT 34.9 % (38.0-50.0); HEMOGLOBIN 11.8 G/DL (12.5-16.6); MCH 28.2 PG (29.0-34.0); MCHC 33.8 G/DL (30.0-36.0); MCV 83.3 FL (86-99); PLATELET COUNT 194 K/uL (156-360); RBC DIS.WIDTH-CV 15.3 % (11.8-14.6); RBC DIS.WIDTH-SD 46.7 % (39-53); RED BLOOD COUNT 4.19 M/uL (4.00-5.50)
[2018-01-30 10:07] LABS: CHLORIDE 108 mEq/L (99-109); POTASSIUM 4.4 mEq/L (3.7-5.4); SODIUM 141 mEq/L (136-147)
[2018-01-30 10:09] LABS: GLUCOSE 169 mg/dL (70-99)
[2018-01-30 10:13] LABS: CREATININE 1.1 mg/dL (0.6-1.3); GFR ESTIMATE (CALCULATED) > 59 mL/min/ (58.99-99999)
[2018-01-30 10:14] LABS: UREA NITROGEN (BUN) 24 mg/dL (9-23)
[2018-01-30 12:16] VITALS: BP 108/67
[2018-01-30 15:55] VITALS: BP 130/76
[2018-01-30 19:20] VITALS: BP 104/69
[2018-01-30 20:41] VITALS: BP 120/69
[2018-01-31] VITALS (7 sets, daily range): BP systolic 117–123; BP diastolic 57–72
[2018-02-01 04:09] VITALS: BP 126/65
[2018-02-01 07:43] VITALS: BP 114/71
[2018-02-01 11:28] VITALS: BP 128/71
== END 2018-02-01 15:15 | disposition home health service (06) | DRG 69 ==
LOC: EME → EDBD 01:36 → EME 01:36 → EDOF 04:08 → 4SOUTH 04:54
PROVIDERS: Emergency Medicine; Hospitalist; Internal Medicine; Physician Assistant Medical
DX: G45.9 Transient cerebral ischemic attack, unspecified (principal); J44.1 Chronic obstructive pulmonary disease with (acute) exacerbation; I47.2 Ventricular tachycardia; E87.6 Hypokalemia; F10.20 Alcohol dependence, uncomplicated; Y90.1 Blood alcohol level of 20-39 mg/100 ml; I10 Essential (primary) hypertension; E78.5 Hyperlipidemia, unspecified; F32.9 Major depressive disorder, single episode, unspecified; F17.210 Nicotine dependence, cigarettes, uncomplicated; Z87.11 Personal history of peptic ulcer disease; Z88.0 Allergy status to penicillin; Z91.040 Latex allergy status; Z87.820 Personal history of traumatic brain injury
CPT/HCPCS: 70450; 70551; 78452; 80048; 80048 91; 80061; 81003; 82140; 82150; 82607; 83036; 83690; 83735; 84484; 85025; 85027; 85610; 85730; 86850; 86900; 86901; 92523 GN; 93005; 93017; 93306; 93880; 94640; 94799; 97530 GO; 99281; 99284; A9500; G0480; G8987 GO CJ; G8988 CI; J0456; J1644; J2785; J2920; J7030; J7512; Q0177

== ENCOUNTER 2018-02-12 17:57 | Emergency (ER) | payer OTHER ==
[~2018-02-12] VITALS: Ht 170.2 cm; Wt 62.4 kg
[~2018-02-12 17:57] MED LIST changes: +ASPIRIN81 M2 PO; +ATORVASTATIN CA40 MG PO; +CLARITIN,ALAVAR10 MG PO; +CYANOCOBALAM1000 MCG PO; +FOLIC ACID1 MG PO; +METOPROLOL SUCC25 MG PO; +MUCINEX600 MG PO; +THERAGRAN1 TABLET PO; +Thiamine,Vitamin B1 PO
[2018-02-12 18:59] LABS: HEMATOCRIT 37.1 % (38.0-50.0); HEMOGLOBIN 12.4 G/DL (12.5-16.6); MCH 27.8 PG (29.0-34.0); MCHC 33.4 G/DL (30.0-36.0); MCV 83.2 FL (86-99); PLATELET COUNT 172 K/uL (156-360); RBC DIS.WIDTH-CV 16.4 % (11.8-14.6); RBC DIS.WIDTH-SD 49.2 % (39-53); RED BLOOD COUNT 4.46 M/uL (4.00-5.50); WHITE BLOOD COUNT 4.7 K/uL (4.1-10.2)
[2018-02-12 19:13] LABS: CHLORIDE 106 mEq/L (99-109); POTASSIUM 4.4 mEq/L (3.7-5.4); SODIUM 137 mEq/L (136-147)
[2018-02-12 19:15] LABS: GLUCOSE 75 mg/dL (70-99)
[2018-02-12 19:19] LABS: CREATININE 1.1 mg/dL (0.6-1.3); GFR ESTIMATE (CALCULATED) > 59 mL/min/ (58.99-99999)
[2018-02-12 19:20] LABS: UREA NITROGEN (BUN) 18 mg/dL (9-23)
[2018-02-12 19:41] LABS: SERUM ETHYL ALCOHOL < 10 mg/dL
[2018-02-12 19:53] LABS: APPEARANCE CLEAR ((CLEAR)); BILIRUBIN NEGATIVE; BLOOD NEGATIVE; COLOR COLORLESS ((YELLOW)); GLUCOSE (STRIP) NEGATIVE; KETONES NEGATIVE; LEUKOCYTES NEGATIVE; NITRITE NEGATIVE; PROTEIN (STRIP) NEGATIVE; SPECIFIC GRAVITY 1.004 (1.000-1.030); UCUL ADDED? NO; UROBILINOGEN 0.2 MG/DL (0.2-1.0)
[2018-02-12 23:10] VITALS: BP 100/72
== END 2018-02-12 23:13 | disposition home or self-care (01) ==
LOC: EME 17:57
PROVIDERS: Emergency Medicine
DX: E86.0 Dehydration (principal); M26.609 Unspecified temporomandibular joint disorder, unspecified side; J44.9 Chronic obstructive pulmonary disease, unspecified; F31.9 Bipolar disorder, unspecified; F32.9 Major depressive disorder, single episode, unspecified; F41.9 Anxiety disorder, unspecified; F17.200 Nicotine dependence, unspecified, uncomplicated; Z87.19 Personal history of other diseases of the digestive system; Z91.040 Latex allergy status; Z88.0 Allergy status to penicillin
CPT/HCPCS: 70450; 80048; 81003; 85027; G0480; J1885